=== PATIENT | female | born 1940 | race Caucasian/White ===

== ENCOUNTER → 2016-08-12 | Outpatient (CLI) | payer MEDICARE, BC ==
[~2016-08-12] MED LIST: ASPIRIN E.C. 8181 MG PO; CALCIUM 600 + V1 TA1 PO; ESTROPIPATE PO; HCTZ PO; LEVO T PO; MULTIPLE VITAMI1 CAP PO; PIROXICAM; PIROXICAM20 MG PO; PRILOSEC20 MG PO; SIMVASTATIN20 MG PO; TEMAZEPAM15 MG PO; THYROID; ZESTRIL10 MG PO
== END ==
LOC: MC.RAD 08:16
DX: N63 Unspecified lump in breast (principal); Z53.09 Procedure and treatment not carried out because of other contraindication

== ENCOUNTER → 2016-08-24 | Outpatient (CLI) | payer MEDICARE, BC | LOC: MC.RAD 08:30 | DX: D05.12 Intraductal carcinoma in situ of left breast (principal) ==